=== PATIENT | female | born 1990 | race Two or more races ===

== ENCOUNTER 2016-11-24 16:06 | Emergency (ER) | payer OTHER ==
--- NOTE | ~2016-11-24 | US61 ---
[facility] A Service of [facility] RADIOLOGY TEXT RESULTS PATIENT: AMBER CH LOCATION: [facility] : 86 UNIT #: [id number] AGE: [address]: Sujey Connell SEX: F ORDER DR: [id number] [facility] [address] [facility]. [place], [place] [address] [id number] E MR#: [id number] Acc #: [id number] NAME: AMBER CH : 1990 SEX: F STUDY DATE/TIME: 11/24/2016 19:15 UNIT: [facility] ROOM: STUDY DESCRIPTION: US /Mat <14Wk / Attending Physician: Sujey Connell Pa-C Ordering Physician: Mamadou Parmar M.D. Primary Care Physician: Marjorie Huddleston A.P.R.N. MEDICAL IMAGING REPORT This report is preliminary unless electronic signature is present EXAM US INDICATION Vaginal bleeding for 1 day. Pelvic pain. G4, P3, A0. Beta HCG is pending at the time of this interpretation. COMPARISON Pelvic ultrasound 07/11/2015. FINDINGS The uterus measures 9.1 x 5 x 6.1 cm. There is a single intrauterine in the uterine fundus. There is a crown-rump length of 1.38 cm. Gestational age correlates with a 4-afkx-9-day gestation. Unfortunately no heart tone could be identified. This is indicative of demise. The right ovary measures 2.3 x 2.1 x 2.6 cm. The left ovary measures 2.4 x 1 x 1.2 cm. No adnexal mass or free pelvic fluid. IMPRESSION There is an IUP consistent with a gestational age of 7 weeks, 5 days, however no heart tones could be detected. This is consistent with a demise. Dictated by... Anibal Pang M.D. THIS IS AN ELECTRONICALLY VERIFIED REPORT [facility] A Service of [facility] RADIOLOGY TEXT RESULTS PATIENT: AMBER CH LOCATION: [facility] : 86 UNIT #: [id number] AGE: [address]: Sujey Connell SEX: F ORDER DR: Anibal Pang M.D. at 11/25/2016 10:51 AM ELLIOTT/alfredo TD: 11/25/2016 10:23 JOB #: [id number] MEDICAL IMAGING REPORT Page 1 of 1 COPY
[2016-11-24 18:51] LABS: URINE SOURCE CLEAN CATCH
[2016-11-24 18:56] LABS: URINE APPEARANCE CLOUDY; URINE BILIRUBIN NEG (NEG); URINE BLOOD 3+ (NEG); URINE COLOR YELLOW; URINE GLUCOSE NEG (NEG); URINE KETONE NEG (NEG); URINE LEUKOCYTE ESTERASE 2+ (NEG); URINE NITRATE NEG (NEG); URINE PROTEIN 1+ (NEG); URINE SPECIFIC GRAVITY 1.007 (1.003-1.035); URINE UROBILINOGEN 0.2 MG/DL (NEG)
[2016-11-24 18:58] LABS: CULTURE INDICATED? YES; URINE BACTERIA AUWI 2+ (NEGATIVE); URINE SQUAMOUS EPITHELIAL CELL OCC /[HPF]
[2016-11-24 19:32] LABS: BASOPHIL% 0.4 % (0-2.5); EOSINOPHIL# 0.1 X10e3 (0-0.7); EOSINOPHIL% 1.4 % (0.0-7.0); HEMATOCRIT 37.8 % (35.0-45.0); LYMPHOCYTE# 2.2 X10e3 (1.0-3.5); LYMPHOCYTE% 24.7 % (17.0-45.0); MEAN CELL VOLUME 80.8 FL (83-96); MEAN CORPUSCULAR HEMOGLOBIN 25.6 PG (28-34); MEAN CORPUSCULAR HGB CONC 31.7 g/dL (30-36); MEAN PLATELET VOLUME 8.9 FL (6.5-11.5); MONOCYTE# 0.7 X10e3 (0-1.0); MONOCYTE% 7.4 % (3.0-12.0); NEUTROPHIL# 5.9 X10e3 (1.5-7.1); NEUTROPHIL% 66.1 % (40-75); PLATELET COUNT 255 X10e3 (140-420); RED BLOOD COUNT 4.68 X10e (3.90-5.30); RED CELL DISTRIBUTION WIDTH 17.2 % (11.0-15.5); WHITE BLOOD COUNT 8.9 X10e3 (4.0-10.5)
[2016-11-24 19:33] LABS: DIFF IND NO
[2016-11-24 19:54] LABS: BILIRUBIN, DIRECT 0.1 mg/dL (0.0-0.2); BILIRUBIN,INDIRECT 0.2 mg/dL (0.0-0.9); BILIRUBIN,TOTAL 0.3 mg/dL (0.2-2.0); CALCIUM SERUM 8.8 mg/dL (8.4-10.2); CREATININE SERUM 0.5 mg/dL (0.6-1.4); GLOM FILT RATE Estimated 131.7 mL/min (>60); POTASSIUM 3.3 mmol/L (3.5-5.1); PROTEIN TOTAL SERUM 7.8 g/dL (6.0-8.3)
== END 2016-11-24 21:40 | disposition home or self-care (01) ==
LOC: CED 16:06 → CFTX 16:06 → CED 18:28 → CFTX 21:40
PROVIDERS: Physician Assistant
DX: O02.1 Missed abortion (principal)
CPT/HCPCS: 36415; 76801; 80048; 80076; 81003; 84702; 84703; 85025; 87086; 99284